=== PATIENT | male | born 1945 | race Caucasian/White ===

== ENCOUNTER 2019-11-02 17:21 | Emergency (ER) | payer MEDICARE, OTHER ==
[2019-11-02] MEDS ORDERED: Sodium Chloride 0.9% 10 ML Syringe FLUSH PRN (18:48)
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
== END 2019-11-02 20:30 | disposition home or self-care (01) ==
LOC: JD.ED 17:21
DX: M79.621 Pain in right upper arm (principal); Z88.5 Allergy status to narcotic agent
CPT/HCPCS: 36415; 80053; 84484; 85025; 85379; 93005; 99283-25